=== PATIENT | male | born 1945 | race Caucasian/White ===

== ENCOUNTER 2021-03-24 08:17 | Day surgery (SDC) | payer MEDICARE, SELFPAY ==
[2021-03-18 14:57] VITALS: BMI 23.6
--- NOTE | 2021-03-19 16:46 | MHC.SHP ---
Pre-Procedural Eval Section A The patient is an INPATIENT: No The History & Physical has been completed within 30 days and I have reviewed it.: Yes Section B Chief Complaint: Right Eye Cataract Allergies: Allergies Allergy/AdvReac Type Severity Reaction Status Date / Time amoxicillin Allergy Rash Verified 03/18/21 14:50 lactose Allergy Gastrointestinal Verified 03/18/21 14:50 Upset Plan Diagnosis/Plan: Unchanged I have reviewed the history and physical and performed a pertinent physical examination on my patient. No changes have occurred unless specified.
--- NOTE | 2021-03-21 09:23 | HO.ANESPROP2 ---
Documented by User: Bev Caceres 03/21/21 09:23 HPI - Anesthesia Eval Consult details Narrative: 75yo M for Right Cataract Multifocal IOL Insertion PCP cleared No prev cataract on record Eliquis for PAF PMFSH Past Medical History Medical History BPH (benign prostatic hyperplasia) COVID-19 vaccine series completed Glaucoma, both eyes History of cardioversion Numbness of fingers of both hands PAF (paroxysmal atrial fibrillation) Pre-diabetes Surgical History Surgical History History of inguinal hernia repair, bilateral Hx of colonoscopy Status post bilateral foot surgery Social History Social History Smoking Status: Never smoker Use of substances other than those prescribed or required for medical reasons: No Are you DNR?: No Advance Directives: No Advance Directives Information Provided: No Advance Directives on File: No Meds Allergies Allergy/AdvReac Type Severity Reaction Status Date / Time amoxicillin Allergy Rash Verified 03/24/21 09:07 lactose Allergy Gastrointestinal Verified 03/24/21 09:07 Upset Home Medications Medication Instructions Recorded Confirmed Last Taken Type apixaban [Eliquis] 1 tab PO BID 03/18/21 03/18/21 Unknown History brimonidine 1 drp OPHTHALMIC (EYE) BID 03/18/21 Unknown History finasteride 1 tab PO DAILY 03/18/21 03/18/21 Unknown History ipratropium bromide 2 spray INTRANASAL TID 03/18/21 03/18/21 Unknown History metoprolol tartrate 1 tab PO BID 03/18/21 03/18/21 03/24/21 06:00 History pantoprazole 1 tab PO DAILY 03/18/21 03/18/21 03/24/21 06:00 History tamsulosin 1 cap PO DAILY 03/18/21 03/18/21 Unknown History Exam Exam Date and Time: March 21, [id number] Height,Weight and Vital Signs: Height 5 ft 4 in Weight 62.596 kg Assessment and Plan Assessment Anesthesia Assessment: Chart Reviewed Documented by User: Cortney Lao 03/24/21 09:57 PMFSH Past Medical History Medical History BPH (benign prostatic hyperplasia) COVID-19 vaccine series completed Glaucoma, both eyes History of cardioversion Numbness of fingers of both hands PAF (paroxysmal atrial fibrillation) Pre-diabetes Surgical History Surgical History History of inguinal hernia repair, bilateral Hx of colonoscopy Status post bilateral foot surgery Social History Social History Smoking Status: Never smoker Use of substances other than those prescribed or required for medical reasons: No Are you DNR?: No Advance Directives: No Advance Directives Information Provided: No Advance Directives on File: No Meds Allergies Allergy/AdvReac Type Severity Reaction Status Date / Time amoxicillin Allergy Rash Verified 03/24/21 09:07 lactose Allergy Gastrointestinal Verified 03/24/21 09:07 Upset Home Medications Medication Instructions Recorded Confirmed Last Taken Type apixaban [Eliquis] 1 tab PO BID 03/18/21 03/18/21 Unknown History brimonidine 1 drp OPHTHALMIC (EYE) BID 03/18/21 Unknown History finasteride 1 tab PO DAILY 03/18/21 03/18/21 Unknown History ipratropium bromide 2 spray INTRANASAL TID 03/18/21 03/18/21 Unknown History metoprolol tartrate 1 tab PO BID 03/18/21 03/18/21 03/24/21 06:00 History pantoprazole 1 tab PO DAILY 03/18/21 03/18/21 03/24/21 06:00 History tamsulosin 1 cap PO DAILY 03/18/21 03/18/21 Unknown History Exam Airway Mallampati Class: II TM Dist: >3cm Neck ROM: Full Denture: Upper and Lower
[2021-03-24] MEDS: Lactated Ringers 500 ML 50 ML IV (09:19)
[2021-03-24] MEDS: Tetracaine HCl/PF 0.5% Oph Sol 4 ML DROPS 1 DROP EYE-RIGHT (09:20)
[2021-03-24] MEDS: Tropicamide 1 % Ophth Sol 3 ML BTL 1 DROP EYE-RIGHT ×3 (09:23→09:29)
[2021-03-24] MEDS: Phenylephrine HCL 2.5% Oph SoL 2 ML BOTTLE 1 DROP EYE-RIGHT ×3 (09:25→09:31)
--- NOTE | 2021-03-24 10:20 | HO.PNOPHT ---
Ophthalmology Procedure Procedure Date of Service: 03/24/21 Ophthalmology Viscoelastic: Healon Duet Dual Pack Pro Ophthalmology Lenses: TECNIS ZXR00 (22) Procedure Notes: PREOPERATIVE DIAGNOSIS: Pterygium right eye POSTOPERATIVE DIAGNOSIS: Same PROCEDURE: Pterygium resection with conjunctival graft right eye SURGEON: Peter Germain M.D. ANESTHESIA: Topical/MAC ESTIMATED BLOOD LOSS: None COMPLICATIONS: None After obtaining informed consent, the patient was brought to the operating room suite and placed in supine position. After adequate sedation per Anesthesia, topical drops of Tetracaine were given to the right eye. The eye was then prepped and draped in the usual sterile fashion. Attention was directed to the right eye where the lid speculum was placed. Tetracaine was instilled topically, followed by subconjunctival injections of Lidocaine below the pterygium and below the superior conjunctiva where the graft was to be harvested from. Utilizing a combination of sharp and blunt dissection with Steven scissors, the pterygium was resected from the cornea, as well as the bulbar conjunctiva. A graft was then harvested from the superior site and placed in the conjunctival bed. It was sutured in place with 7-0 Vicryl sutures in a running fashion. Attention was directed superiorly where the graft harvest site was closed with additional 7-0 Vicryl interrupted sutures. Antibiotic ointment was instilled in the cul de sac. The lid speculum was removed. The patient tolerated the procedure well and will be followed.
--- NOTE | 2021-03-24 10:43 | HO.PNOPHT ---
Ophthalmology Procedure Procedure Date of Service: 03/24/21 Ophthalmology Viscoelastic: Healon Duet Dual Pack Pro Ophthalmology Lenses: TECNIS ZXR00 (22) Procedure Notes: PREOPERATIVE DIAGNOSIS: Decreased visual acuity right eye secondary to cataract POSTOPERATIVE DIAGNOSIS: Same PROCEDURE: Right cataract extraction with multifocal intraocular lens insertion SURGEON: Peter Germain M.D. ANESTHESIA: Topical/MAC ESTIMATED BLOOD LOSS: None COMPLICATIONS: None After obtaining informed consent, the patient was brought to the operating room suite and placed in the supine position. After adequate sedation per anesthesia, topical drops of Tetracaine were given to the right eye. The eye was then prepped and draped in the usual sterile fashion. The operating room microscope was then positioned over the operative eye and a lid speculum placed. A paracentesis was created. Viscoelastic was then instilled into the anterior chamber. A three plane incision was then created temporally, utilizing a 2.85 mm keratome. Capsulotomy forceps were then utilized to create a circular tear capsulotomy. Hydrodissection and hydrodelineation were carried out until adequate mobilization of the nucleus occurred. Phacoemulsification was then utilized to remove the dense central nucleus followed by removal of the cortical material utilizing the automated aspiration irrigation unit. Viscoelastic was instilled into the posterior capsular bag followed by placement of a multifocal posterior chamber intraocular lens without difficulty. The residual Viscoelastic was then removed utilizing the automated IA machine. The wound was checked and found to be watertight. The patient tolerated the procedure well and the lid speculum was removed. Intracameral injection of Vigamox 0.1 mL followed by a subtenon injection of Kenalog-40 0.2 mL were administered. The patient will be seen in the a.m.
[2021-03-24 10:45] VITALS: BP 145/70; PULSE 63; RESP 16; TEMP 36.1; O2SAT 100
== END 2021-03-24 09:30 | disposition home or self-care (01) ==
PROVIDERS: Visit Provider Ophthalmology
PROC: (CPT 66984; principal; 2021-03-24 10:50)
DX: H25.11 Age-related nuclear cataract, right eye (principal); H52.4 Presbyopia; H40.1133 Primary open-angle glaucoma, bilateral, severe stage; I10 Essential (primary) hypertension; E11.9 Type 2 diabetes mellitus without complications; I48.0 Paroxysmal atrial fibrillation; Z79.01 Long term (current) use of anticoagulants; Z79.899 Other long term (current) drug therapy
CPT/HCPCS: 66984; J2250; J3300; V2788

== ENCOUNTER 2021-04-07 07:52 | Day surgery (SDC) | payer MEDICARE, SELFPAY ==
[2021-03-18 14:59] VITALS: BMI 23.6
--- NOTE | 2021-04-03 08:33 | MHC.SHP ---
Pre-Procedural Eval Section A The patient is an INPATIENT: No The History & Physical has been completed within 30 days and I have reviewed it.: Yes Section B Chief Complaint: Left Eye cataract Allergies: Allergies Allergy/AdvReac Type Severity Reaction Status Date / Time amoxicillin Allergy Rash Verified 03/24/21 09:07 lactose Allergy Gastrointestinal Verified 03/24/21 09:07 Upset Plan Diagnosis/Plan: Unchanged I have reviewed the history and physical and performed a pertinent physical examination on my patient. No changes have occurred unless specified.
--- NOTE | 2021-04-04 08:43 | HO.ANESPROP2 ---
Documented by User: Bev Caceres 04/04/21 08:44 HPI - Anesthesia Eval Consult details Narrative: 75yo M for Left Cataract Extraction IOL Insertion PCP cleared Right eye done 03/24/21: Midaz 1 PMFSH Past Medical History Medical History BPH (benign prostatic hyperplasia) COVID-19 vaccine series completed Glaucoma, both eyes History of cardioversion Numbness of fingers of both hands PAF (paroxysmal atrial fibrillation) Pre-diabetes Surgical History Surgical History History of inguinal hernia repair, bilateral Hx of colonoscopy Status post bilateral foot surgery Social History Social History Smoking Status: Never smoker Are you DNR?: No Advance Directives: No Advance Directives Information Provided: No Advance Directives on File: No Meds Allergies Allergy/AdvReac Type Severity Reaction Status Date / Time amoxicillin Allergy Rash Verified 03/24/21 09:07 lactose Allergy Gastrointestinal Verified 03/24/21 09:07 Upset Home Medications Medication Instructions Recorded Confirmed Last Taken Type apixaban [Eliquis] 1 tab PO BID 03/18/21 03/18/21 Unknown History brimonidine 1 drp OPHTHALMIC (EYE) BID 03/18/21 Unknown History finasteride 1 tab PO DAILY 03/18/21 03/18/21 Unknown History ipratropium bromide 2 spray INTRANASAL TID 03/18/21 03/18/21 Unknown History metoprolol tartrate 1 tab PO BID 03/18/21 03/18/21 03/24/21 06:00 History pantoprazole 1 tab PO DAILY 03/18/21 03/18/21 03/24/21 06:00 History tamsulosin 1 cap PO DAILY 03/18/21 03/18/21 Unknown History Exam Exam Date and Time: April 04, 2021 0843 Height,Weight and Vital Signs: Height 5 ft 4 in Weight 62.596 kg Assessment and Plan Assessment Anesthesia Assessment: Chart Reviewed Documented by User: Nickie Hunt 04/07/21 08:41 PMFSH Past Medical History Medical History BPH (benign prostatic hyperplasia) COVID-19 vaccine series completed Glaucoma, both eyes History of cardioversion Numbness of fingers of both hands PAF (paroxysmal atrial fibrillation) Pre-diabetes Surgical History Surgical History History of inguinal hernia repair, bilateral Hx of colonoscopy Status post bilateral foot surgery Social History Social History Smoking Status: Never smoker Are you DNR?: No Advance Directives: No Advance Directives Information Provided: No Advance Directives on File: No Meds Allergies Allergy/AdvReac Type Severity Reaction Status Date / Time amoxicillin Allergy Rash Verified 03/24/21 09:07 lactose Allergy Gastrointestinal Verified 03/24/21 09:07 Upset Home Medications Medication Instructions Recorded Confirmed Last Taken Type apixaban [Eliquis] 1 tab PO BID 03/18/21 03/18/21 Unknown History brimonidine 1 drp OPHTHALMIC (EYE) BID 03/18/21 Unknown History finasteride 1 tab PO DAILY 03/18/21 03/18/21 Unknown History ipratropium bromide 2 spray INTRANASAL TID 03/18/21 03/18/21 Unknown History metoprolol tartrate 1 tab PO BID 03/18/21 03/18/21 03/24/21 06:00 History pantoprazole 1 tab PO DAILY 03/18/21 03/18/21 03/24/21 06:00 History tamsulosin 1 cap PO DAILY 03/18/21 03/18/21 Unknown History Exam Airway Mallampati Class: II TM Dist: >3cm Neck ROM: Full Partial: Upper and Lower Loose/Missing/Broken Teeth: Yes Heart: RRR Lungs: CTA Assessment and Plan Assessment Anesthesia Assessment: Anesthesia Plan Discussed and Chart Reviewed Final Anesthetic Review NPO: Yes ASA Class: III Final Preanesthetic Review: Meds/Allgs Chart Reviewed, Consent Obtained/Reviewed and Anes Risks/Benef Reviewed Patient Risk: Intermediate Procedure Risk: Low Anesthetic Plan Anesthetic Plan: MAC: Disposition: Standard PACU
[2021-04-07 08:31] VITALS: BP 143/83; PULSE 66; RESP 18; TEMP 36.1; O2SAT 100
[2021-04-07] MEDS: Tetracaine HCl/PF 0.5% Oph Sol 4 ML DROPS 1 DROP EYE-LEFT (08:46)
[2021-04-07] MEDS: Lactated Ringers 500 ML 50 ML IV (08:46)
[2021-04-07] MEDS: Tropicamide 1 % Ophth Sol 3 ML BTL 1 DROP EYE-LEFT ×3 (08:47→08:51)
[2021-04-07] MEDS: Phenylephrine HCL 2.5% Oph SoL 2 ML BOTTLE 1 DROP EYE-LEFT ×3 (08:48→08:52)
--- NOTE | 2021-04-07 09:22 | HO.PNOPHT ---
Ophthalmology Procedure Procedure Date of Service: 04/07/21 Ophthalmology Viscoelastic: Healon Duet Dual Pack Pro Ophthalmology Lenses: TECNIS ZXR00 (21.5) Procedure Notes: PREOPERATIVE DIAGNOSIS: Decreased visual acuity left eye secondary to cataract POSTOPERATIVE DIAGNOSIS: Same PROCEDURE: Left cataract extraction with multifocal intraocular lens insertion SURGEON: Peter Germain M.D. ANESTHESIA: Topical/MAC ESTIMATED BLOOD LOSS: None COMPLICATIONS: None After obtaining informed consent, the patient was brought to the operation room suite and placed in the supine position. After adequate sedation per anesthesia, topical drops of Tetracaine were given to the left eye. The eye was then prepped and draped in the usual sterile fashion. The operating room microscope was then positioned over the operative eye and a lid speculum placed. A paracentesis was created. Viscoelastic was then instilled into the anterior chamber. A three plane incision was then created temporally, utilizing a 2.85 mm keratome. Capsulotomy forceps were then utilized to create a circular tear capsulotomy. Hydrodissection and hydrodelineation were carried out until adequate mobilization of the nucleus occurred. Phacoemulsification was then utilized to remove the dense central nucleus followed by removal of the cortical material utilizing the automated aspiration irrigation unit. Viscoelastic was instilled into the posterior capsular bag followed by placement of a multifocal posterior chamber intraocular lens without difficulty. The residual Viscoelastic was then removed utilizing the automated IA machine. The wound was check and found to be watertight. The patient tolerated the procedure well and the lid speculum was removed. Intracameral injection of Vigamox 0.1 mL followed by a subtenon injection of Kenalog-40 0.2 mL were administered. The patient will be seen in the a.m.
[2021-04-07 09:55] VITALS: BP 140/74; PULSE 55; RESP 16; TEMP 36.7; O2SAT 98
== END 2021-04-07 09:59 | disposition home or self-care (01) ==
PROVIDERS: Visit Provider Ophthalmology
PROC: (CPT 66984; principal; 2021-04-07 10:00)
DX: H25.12 Age-related nuclear cataract, left eye (principal); H52.4 Presbyopia; H40.1133 Primary open-angle glaucoma, bilateral, severe stage; E11.9 Type 2 diabetes mellitus without complications; I10 Essential (primary) hypertension; I48.0 Paroxysmal atrial fibrillation; Z79.01 Long term (current) use of anticoagulants; Z79.899 Other long term (current) drug therapy; Z88.0 Allergy status to penicillin
CPT/HCPCS: 66984; J2250; J3300; V2788

== ENCOUNTER 2023-11-26 09:23 | Outpatient (AMB) | payer MEDICARE, SELFPAY ==
--- NOTE | 2023-11-26 10:16 | AM.OFFWIN_ITS ---
Intake Vital Signs 11/26/23 10:24 Height 5 ft 4 in Weight 139 lb BMI 23.9 BP 130/70 Blood Pressure Location Lt brachial Position Sitting Pulse 76 Pulse Source Pulse Oximeter Temp 98.8 F Temp Source Oral Pulse Oximetry (%) 97 Oxygen Delivery Method Room Air Intake Visit Reasons: EST/sob, sinus pressure(lobby) Intake Note: pt is her today for SOB sinus pressure started Patient Tobacco Use Status: Never used Tobacco Allergies amoxicillin Allergy (Verified 11/26/23 10:24) Rash lactose Allergy (Verified 11/26/23 10:24) Gastrointestinal Upset Medication List - Last Reconciled 11/26/23 by Heather Weston NP apixaban (Eliquis) 1 tab PO BID brimonidine 0.2% 1 drp ophthalmic (eye) BID finasteride 1 tab PO DAILY ipratropium bromide 2 sprays intranasal TID metoprolol tartrate 1 tab PO BID pantoprazole 1 tab PO DAILY tamsulosin 1 cap PO DAILY Do you need a note to return to daycare/school/sports/work: Yes HPI HPI Comments History of Present Illness Details 78 y/o male patient who presents to walk -in clinic with c/o SOB and Sinus pressure for 5 weeks. [facility] Medical History BPH (benign prostatic hyperplasia) COVID-19 vaccine series completed Glaucoma, both eyes History of cardioversion Numbness of fingers of both hands PAF (paroxysmal atrial fibrillation) Pre-diabetes Surgical History History of inguinal hernia repair, bilateral Hx of colonoscopy Status post bilateral foot surgery Social History Patient Tobacco Use Status: Never used Tobacco Review of Systems Const All systems reviewed & are unremarkable except as noted in HPI and below Physical Exam Vital Signs: Last Vital Signs Temp 98.8 F 11/26/23 10:24 Pulse 76 11/26/23 10:24 BP 130/70 11/26/23 10:24 Pulse Ox 97 11/26/23 10:24 Oxygen Delivery Method Room Air 11/26/23 10:24 BMI result Body Mass Index 23.9 Const General: no acute distress Resp Effort & Inspection: normal respiratory effort, able to speak in complete sentences and Actively coughing Auscultation: clear to auscultation bilaterally Cardio Rate: regular rate Rhythm: regular rhythm Assessment & Plan Assessment & Plan (1) URI, acute: Code(s): J06.9 - Acute upper respiratory infection, unspecified Plan: Rest and hydrate Orders: Orders SARS-CoV2/FLU/RSV Today R09.89 - Other specified symptoms and signs involving the circulatory and respiratory systems Medications: New 2 azithromycin 500 mg PO DAILY 5 days 5 tabs 0RF J06.9 - Acute upper respiratory infection, unspecified Coding Level of Care Code Est Pt Level 3 (72940) Diagnoses URI, acute J06.9 Time Spent (min) 10
[2023-11-26 10:24] VITALS: BP 130/70; PULSE 76; TEMP 37.1; O2SAT 97; BMI 23.9
== END 2023-11-26 11:02 | disposition home or self-care (01) ==
PROVIDERS: Visit Provider Nurse Practitioner Family
DX: J06.9 Acute upper respiratory infection, unspecified (principal)
CPT/HCPCS: 99213

== ENCOUNTER 2023-11-26 11:01 | Outpatient (REF) | payer MEDICARE, SELFPAY ==
[2023-11-26 14:31] LABS: Influenza A PCR NEGATIVE (Negative); Influenza B PCR NEGATIVE (Negative); Resp Syncy Virus RNA Qual PCR NEGATIVE (Negative); SARS COV2 PCR INHOUSE NEGATIVE (Negative)
== END 2023-11-26 11:02 | disposition home or self-care (01) ==
LOC: HO.LAB 11:01
PROVIDERS: Visit Provider Nurse Practitioner Family
DX: R09.89 Other specified symptoms and signs involving the circulatory and respiratory systems (principal); Z11.52 Encounter for screening for COVID-19; Z20.828 Contact with and (suspected) exposure to other viral communicable diseases
CPT/HCPCS: 0241U